=== PATIENT | female | born 1940 | race Caucasian/White ===

== ENCOUNTER 2020-04-14 09:29 | Outpatient (CLI) | payer MEDICARE, SELFPAY ==
--- NOTE | 2020-04-14 09:36 | MM_ITS ---
WS: [id number] Bilateral screening digital mammogram, 04/14/2020 Clinical Data: SCREENING Comparison: 11/20/2017, 11/06/2017, 01/05/2016, 05/19/2014, 06/19/2011, 06/06/2011, 07/31/2009, 05/02/2008, . Findings: The breast parenchymal pattern shows heterogeneous density No spiculated masses or clustered calcific ations are seen. There are no secondary signs of carcinoma. The left breast cyst is not present. MM/[place] [id number] Impression: 1. Negative bilateral mammogram unchanged. 2. Recommend annual screening mammograms. BIRADS: 1-Negative FOLLOW UP: 1 Year Follow-up The [employer] ticket checker was used.
== END 2020-04-14 09:30 | disposition home or self-care (01) ==
LOC: RADSHAW 09:34
PROVIDERS: PCP Family Medicine; Visit Provider Family Medicine
DX: Z12.31 Encounter for screening mammogram for malignant neoplasm of breast (principal)
CPT/HCPCS: 77067

== ENCOUNTER → 2020-06-15 11:16 | Outpatient (BNVA) | payer MEDICARE, SELFPAY | PROVIDERS: PCP Family Medicine; Referring Provider Family Medicine; Visit Provider Specialist | DX: M17.11 Unilateral primary osteoarthritis, right knee (principal); M25.561 Pain in right knee | CPT/HCPCS: 73560; 73565 ==

== ENCOUNTER → 2020-07-27 15:29 | Outpatient (BNVA) | payer MEDICARE, SELFPAY | PROVIDERS: PCP Family Medicine; Visit Provider Specialist | DX: Z01.812 Encounter for preprocedural laboratory examination (principal) | CPT/HCPCS: 87635 ==

== ENCOUNTER 2020-08-01 09:00 | Observation (INO) | payer MEDICARE, SELFPAY ==
[2020-07-21 09:41] VITALS: BMI 27.2
--- NOTE | 2020-07-21 10:26 | ANES.PREANE2 ---
Pre-Anesthetic Assessment Pre-Anesthetic Assessment: Height/Weight: Height 1.57 m Weight 67.585 kg Preop Diagnosis: DJD right knee Proposed Procedure: Operation Date: 08/01/20 07:00 Proposed Procedures p Right Total Knee Arthroplasty 95578 m17.10(Right) - Jenn Moreno MD Familial anesthetic complications: None Social: Social History: No alcohol and No tobacco Exam: Pre-Anes Outpt Exam: alert, oriented x 3, clear to auscultation bilaterally and regular rate & rhythm Airway: Cervical ROM: WNL MP: 3 Dentition: Partials and Full CV/HEM: CV/HEM: HTN Neuropsych: Neuropsych: CVA Comments: hx brain tumor w/ tremors now on diazepam, vertigo Sometimes she will have episodes where she can't move her legs, but she was told they are panic attacks Anesthetic Plan: ASA status: 3 Anesthesia: Eval. for regional block, General and Regional (specify below) Other: adductor canal bloc Spinal vs general --> no apparent mass effect, so spinal may not be contraindicated Risk of > 500 ml blood loss (7ml/kg in children): No PFSH Anesthesia PFSH: Family History Mother Enlarged heart Father Diabetes Social History Smoking and tobacco status: former smoker Alcohol intake: never Data Anesthesia Cardiac Studies: No Data to Display
[2020-07-21 10:40] LABS: Add Urine Microscopic? NO
[2020-07-21 10:45] LABS: Basophils # 0.1 10^3/uL (0.0-0.1); Basophils % 1.1 %; Eosinophils # 0.2 10^3/uL (0.0-0.8); Eosinophils % 2.2 %; Hematocrit 44.6 % (37.0-47.0); Hemoglobin 14.2 g/dL (11.5-15.3); Lymphocytes % 34.9 %; Mean Corpuscular HGB Conc 31.8 g/dL (30.0-36.0); Mean Corpuscular Hemoglobin 27.8 pg (28.0-34.0); Mean Corpuscular Volume 87.5 fL (81-99); Mean Platelet Volume 11.4 fL (7.4-10.4); Monocytes # 0.7 10^3/uL (0.2-0.9); Neutrophils # 4.53 10^3/uL (1.8-7.7); Neutrophils % 53.7 %; Nucleated Red Blood Cells % 0 %; Platelet Count 262 10^3/cmm (130-400); Red Cell Distribution Width 12.7 % (12.1-15.1); White Blood Count 8.5 10^3/uL (4.0-10.0)
[2020-07-21 10:52] LABS: Bilirubin Urine Neg (Negative); Blood Urine Neg (Negative); Glucose Urine UA Norm (Normal); Ketones Urine Negative (Negative); Leukocyte Esterase Urine Negative (Negative); Nitrate Urine Negative (Negative); Protein Urine Neg (Negative); Urine Appearance Clear (CLEAR); Urine Color Yellow (Yellow); Urobilinogen Urine Norm (Negative); pH Urine 7 (5-7)
[2020-07-21 11:02] LABS: Alanine Aminotransferase 13 U/L (0-33); Albumin Level 4.1 g/dL (3.5-5.2); Alkaline Phosphatase 80 IU/L (35-105); Aspartate Amino Transferase 16 U/L (0-32); Blood Urea Nitrogen 17 mg/dL (8-23); Calcium 9.6 mg/dL (8.5-10.5); Carbon Dioxide 27 mmol/L (22-29); Chloride 100 mmol/L (98-107); Creatinine Clr Calc Pharmacy 48.8669; Globulin 3.8 g/dL (1.3-4.6); Glucose 96 mg/dL (65-115); Osmolality Calculated 285 mOsm/kg (285-295); Sodium 137 mmol/L (136-145); Total Bilirubin 0.3 mg/dL (0.15-1.2); Total Protein 7.9 g/dL (6.6-8.7)
[2020-07-21 11:03] LABS: Anion Gap 14.6 (5-19); Potassium 4.6 mmol/L (3.5-5.1)
[2020-08-01] VITALS (18 sets, daily range): BP systolic 114–180; BP diastolic 66–104; PULSE 63–80; RESP 13–20; TEMP 36.2–37.2; O2SAT 90–98
[2020-08-01] MEDS: sodium chloride 0.9% 1,000 ML 30 ML IV (06:20)
[2020-08-01] MEDS: CELEcoxib 200 mg Capsule 400 MG PO (06:25)
--- NOTE | 2020-08-01 06:44 | P.ANESUD_ITS ---
Pre-Anesthetic Update Pre-Anesthetic Assessment: Date of Surgery/Procedure: 08/01/20 Preop [place] gnosis: DJD right knee Proposed Procedure: Operation Date: 08/01/20 07:00 Proposed Procedures p Right Total Knee Arthroplasty 04652 m17.10(Right) - Jenn Moreno MD Any changes to Pre-Anesthetic Assessment?: No Last Intake: Intake Last Liquid Date 07/31/20 Last Liquid Time 18:15 Last Solid Date 07/31/20 Last Solid Time 18:15 Vitals: Temperature 98.5 F 08/01/20 06:38 Temperature Source Temporal Artery S can 08/01/20 06:38 Pulse Rate 68 08/01/20 06:38 Pulse Rhythm 08/01/20 05:55 Pulse Strength 3+ Normal 08/01/20 05:55 Respiratory Rate 18 08/01/20 06:38 Blood Pressure 156/104 08/01/20 06:38 Blood Pressure Maria E n 121 08/01/20 06:38 Pulse Oximetry 97 08/01/20 06:38 Oxygen Delivery Me thod 08/01/20 06:38 Exam: Pre-Anes Outpt Exam: alert, oriented x 3, clear to auscultation bilaterally and regular rate & rhythm Cardiac Studies: No Data to Display
--- NOTE | 2020-08-01 06:44 | ANES.PROC ---
Anesthesia Procedures Procedure/Date: 08/01/20 Nerve Block ^: Nerve Block 1: Main Anesthesia: general anesthesia Time Out Performed: Yes Consent: requested by attending/covering physician, from patient, from other, risks and benefits reviewed and patient agrees to proceed Nerve block location: adductor canal (R) Anesthesia monitors applied: pulse oximetry, EKG, BP cuff and oxygen Anesthetic Used: ropivicaine 0.5% and with decadron (4 mg) Amount of anesthesia used (mL): 30 Ultrasound used to: recognize landmarks and visualize and ID femerol nerve Nerve Stimulator Used?: No Interscalene/Femoral BLK: 4 stimuplex 21 g needle used for position and inplane approach, visualize local anesthetic spread and no vascular puncture identified Injection: neg aspiration of heme Patient Tolerated Procedure: well and no complications Complications: none
--- NOTE | 2020-08-01 06:53 | W.PM.OPSUD ---
Surgery/Procedure H&P Update DATE OF PROCEDURE: August 01, 2020 DATE H&P PERFORMED: 07/24/20 H&P UPDATE INFORMATION: I have reviewed H&P completed within last 30 days, I have examined patient prior to procedure, No changes to prior documentation and H&P is in [facility] on date indicated PREOP DIAGNOSIS: DJD right knee PLANNED PROCEDURE: Operation Date: 08/01/20 07:00 Proposed Procedures p Right Total Knee Arthroplasty 67542 m17.10(Right) - Jenn Moreno MD Related Problem List Diagnoses (1) Primary osteoarthritis of right knee:
[2020-08-01] MEDS: ceFAZolin 1,000 mg SDV 2000 MG IRRIGATION (07:49)
[2020-08-01] MEDS: midazolam 1 mg/mL INJ 2 mL 2 MG IVP (07:50)
[2020-08-01] MEDS: vancomycin 1,000 MG SDV 1000 MG XX (07:50)
--- NOTE | 2020-08-01 09:25 | XRR_ITS ---
PROCEDURE INFORMATION: Exam: XR Right Knee Exam date and time: 08/01/2020 9:26 AM Age: 80 years old Clinical indication: Device placement; Joint replacement hardware; Prior surgery; Additional info: Status post total knee arthroplasty TECHNIQUE: Imaging protocol: XR Right knee. Views: 1 or 2 views. COMPARISON: CR XR knees AP WB w RT lmt ORTH 06/15/2020 11:22 AM FINDINGS: Bones/joints: Anatomic alignment of right knee arthroplasty. Postoperative subcutaneous emphysema and intra-articular air. Soft tissues: Skin janina. Calcification involving the distal quadriceps tendon. XR/XR knee RT 1-2V 33695 IMPRESSION: Anatomic alignment of right knee arthroplasty.
--- NOTE | 2020-08-01 09:28 | P.OP_ITS ---
Operative Report Date of procedure: August 01, 2020 Pre-op Diagnosis: Degenerative osteoarthritis right knee Post-op diagnosis: same Procedure Done: Right total knee arthroplasty Implants: The [place] total knee system with a size 3 triathlon beaded posterior stabilized femur right, a triathlon titanium tibial component size 3 beaded, a triathlon X3 posterior stabilized tibial bearing insert size 3 X 13 mm and a beaded triathlon titanium asymmetric patella size 29 x 9 mm Specimens removed/disposition: None, bone disposed of Pathology: none sent Surgeon: Jenn Moreno Pad Tufter: [employer] [facility] OR technicians Anesthesia: General (Intubated, ASA 3, with preoperative regional block) Estimated blood loss (mL): 25 Tourniquet time (min): 78 Tourniquet time: At 250 mmHg IV fluids (mL): 800 Urine output (mL): 500 Complications: None Findings: Severe degenerative osteoarthritis with varus deformity and medial tibial bone loss Condition: stable Disposition: PACU (Then to floor for postoperative pain management and rehabilitation as well as medical monitoring) Brief History: This 80-year-old man presented with complaints of severe right knee pain. She was unable to perform activities of daily living comfortably. She was unresponsive to conservative measures and wished to proceed with right total knee arthroplasty. Risks and complications were discussed with her and her family. Consents were signed preoperatively and questions were answered. The patient wished to proceed understanding the above. Procedure: The patient was brought to the operating theater, and after undergoing adequate general anesthesia, intubated, with preoperative regional block, ASA 3, the right lower extremity was prepped with Dura-Prep and draped in usual fashion following placement of a tourniquet high on the leg. The leg was then draped free. Following prepping and draping, the leg was exsanguinated, and the tourniquet was elevated to 250 mm Hg for a total tourniquet time of 78 minutes. Prior to elevation of the tourniquet, but following exposure of the site of surgery, a surgical pause was performed. At the time of the surgical pause, we confirmed the site and side of surgery. Additionally, we confirmed the appropriate and timely administration of preoperative antibiotics, Ancef 2 g. and Transexemic acid 1 g. The availability of equipment was confirmed, and the patient's identity was verbalized as well. Following the surgical pause, an incision was made centering over the patella continuing proximally and distally as necessary to allow access to the knee joint. Dissection continued through skin and soft tissues using a scalpel. Hemostasis was obtained using electrocautery. The skin incision was followed by a median parapatellar arthrotomy. The leg was extended and the patella was everted. Following this, the leg was returned to flexed position. The distal femur was exposed and a drill hole was made in this for placement of the distal femoral jig. The distal femoral jig was set at 5? of valgus. The distal femoral cutting block was then placed in appropriate position, and an carmela wing was used to confirm an appropriate amount of distal femur would be resected. The distal femoral resection was accomplished with 8 mm of bone being resected distally. After the distal femoral resection had been accomplished, the femur was measured and it measured a size 3. Medial lateral dimension also measured a size 3. A size 3 femoral cutting block was placed in position, and we were then able to accomplish the anterior, posterior and chamfer cuts. This jig was then removed and the notch guide was placed in position. With the notch guide in appropriate position, the notch was excised including resection of the anterior and posterior cruciate ligaments. This notch was to allow for the posterior stabilized femoral component. At this point, the femur was prepared and attention was directed to the proximal tibia. The posterior knee retractor was placed along with medial and lateral retractors. Further resection of the menisci was accomplished as we had better visualization. A complete meniscectomy was performed both medially and laterally with care being taken to protect the popliteus. Retractors were then placed so that the proximal tibia was well visualized. A drill hole was then made in the tibia for placement of the intramedullary guide. This guide was placed so that approximately 2 mm of bone would be resected from the deficient medial tibial plateau. The intramedullary guide was utilized supplemented with an extramedullary guide to assure appropriate alignment for the proximal tibial resection. The proximal tibial jig was then evaluated, pinned in position, and the proximal tibial resection was accomplished without difficulty. The jig was removed, and the proximal tibia was measured. It measured a size 3. We then attempted a trial reduction with a size 3 by 13 mm insert. The femoral component was placed in position for the trial reduction, and the knee was placed through range of motion. With this, there was excellent stability with excellent varus-valgus alignment with appropriate patellar tracking. Extension was noted to be full as well. This was felt to be the appropriate size insert. There was full extension and flexion without lift off and the rotation of the tibia was marked. Alignment was checked from the hip to the ankle, and this was noted to be appropriate as well. Attention was then directed to the patella. The patella was measured with a caliper. We resected sufficient patella to leave approximately 14 mm of patella remaining. Measurements of the patella then indicated that a size asymmetric 29 mm x 9 mm was the appropriate patellar size. We then placed the jig to drill for the 3 pegs of the press-fit patella, and these drill holes were made without incident. A trial patella was then placed, and the knee was placed through range of motion. The patella was noted to track nicely without evidence of subluxation. The femur was prepared for a press-fit femur by drilling 2 holes for the femoral pegs. All trial components were subsequently removed. The tibial tray was then pinned into position, and we broached the tibia for the stem of the tibial component. Subsequently, 4 drill holes were made for placement of the press-fit tibia. This was accomplished without difficulty. Care was taken to assure appropriate rotation of the tibia as well as appropriate position on the proximal tibia. The tibial tray was completely seated on the proximal tibia. Following broaching, the tibial guide was removed, and all surfaces were copiously irrigated. The surfaces were then dried and a bone plug was placed into the distal femur. Exparel was also injected at this point. The Tritanium tibia was impacted into position. The beaded femur was then impacted into position in a cementless fashion. The tibial insert was placed. The patella was pressed into position with a patellar clamp. The knee was irrigated with 20 mL of Betadine and 500 mL of normal saline, and this was allowed to remain in the knee for 3-4 minutes. The knee was then copiously irrigated and suctioned dry. Attention was then directed to closure. Closure was accomplished with 0 Vicryl in the fascial tissues. Following this, a 2-0 Monocryl was used in the subcutaneous tissues, and the skin was closed with skin janina. A sterile dressing was then placed consisting of Exofin, telfa, 4x4's, ABD, sterile soft roll, and an Cuate wrap. The patient was returned the Recovery Room in a satisfactory condition. X-rays were obtained there. The patient will be discharged to the floor for postoperative rehabilitation and pain management. Associated Problem List Diagnoses (1) Primary osteoarthritis of right knee:
--- NOTE | 2020-08-01 09:29 | SUR.PHASEI ---
PT AWAKE ALERT ON 3LNC NOW, X RAYS DONE, RT KNEE DRESSING THIGH TO TOES D/I FIRST ICE IN PLACE DISTAL FOOT WITH PULSE NOTED FOOT WARM PINK BILAT FOOT PUMPS ON , SZYMANSKI TO DD STATLOCK TO LT THIGH WITH YELLOW URINE NOTED TUBING AND BAG, MONITOR SR NO ECTOPY, VSS .
--- NOTE | 2020-08-01 09:59 | SUR.PHASEI ---
0940 PT TO FLOOR PER BED PT AWAKE ALERT , TALKATIVE WITH STAFF, HANDOFF AT BEDSIDE WITH ENDER RASMUSSEN. RT KNEE DRESSING D/I , PT SATS GOOD ON RA.
[2020-08-01] MEDS: chlorhexidine gluconate 0.12% Btl 473 mL 30 ML MUCOUS MEM ×3 (14:12→20:04)
--- NOTE | 2020-08-01 14:35 | ANE.PACU2 ---
Inpatient post-anesthesia follow up: Airway intact: Yes Vital signs: Temperature 97.5 F Pulse Rate 80 Respiratory Rate 17 Blood Pressure 162/79 Pulse Oximetry 98 Oxygen Delivery Me thod Nasal Cannula Oxygen Flow Rate 1 Fraction of Inspir ed Oxygen Hydration adequate: Yes Nausea and vomiting: No Pain level: 3 Mental status: Baseline
[2020-08-01] MEDS: calcium carbonate 500 mg Chew Tablet 1000 MG PO (17:51)
[2020-08-01] MEDS: mupirocin oint 22 gm 1 APPLIC NASAL (17:51)
[2020-08-01] MEDS: iron polysaccharide complex 150 mg Capsule PO (17:51)
[2020-08-01] MEDS: sennosides-docusate Tablet 2 TAB PO (17:51)
[2020-08-01] MEDS: CELEcoxib 200 mg Capsule PO (17:51)
[2020-08-01] MEDS: trazodone 50 mg Tablet PO (20:05)
[2020-08-02 02:33] LABS: Basophils % 0.2 %; Eosinophils % 0.1 %; Hematocrit 32.2 % (37.0-47.0); Hemoglobin 10.4 g/dL (11.5-15.3); Lymphocytes # 2.1 10^3/uL (0.8-4.8); Lymphocytes % 17.1 %; Mean Corpuscular HGB Conc 32.3 g/dL (30.0-36.0); Mean Corpuscular Hemoglobin 28.3 pg (28.0-34.0); Mean Corpuscular Volume 87.5 fL (81-99); Mean Platelet Volume 11.3 fL (7.4-10.4); Monocytes # 1.2 10^3/uL (0.2-0.9); Monocytes % 9.9 %; Neutrophils # 8.74 10^3/uL (1.8-7.7); Neutrophils % 72.4 %; Nucleated Red Blood Cells % 0 %; Platelet Count 197 10^3/cmm (130-400); Red Blood Count 3.68 10^6/uL (4.1-5.3); White Blood Count 12.1 10^3/uL (4.0-10.0)
[2020-08-02 02:56] LABS: Anion Gap 13.8 (5-19); Blood Urea Nitrogen 24 mg/dL (8-23); Calcium 8.9 mg/dL (8.5-10.5); Carbon Dioxide 24 mmol/L (22-29); Chloride 102 mmol/L (98-107); Glucose 118 mg/dL (65-115); Osmolality Calculated 287 mOsm/kg (285-295); Potassium 3.8 mmol/L (3.5-5.1); Sodium 136 mmol/L (136-145)
[2020-08-02 04:00] VITALS: BP 133/69; PULSE 71; RESP 18; TEMP 36.7; O2SAT 93
[2020-08-02] MEDS: CELEcoxib 200 mg Capsule PO (06:01)
--- NOTE | 2020-08-02 06:34 | NUR.SHIFT ---
Patient mainly slept through the night. This nurse with the assistance of the TROLLEY WIRE INSTALLER was able to transition from bed to chair. Patient tolerated only moderately, patients LLE was weak. Patient had only mild amounts of pain.
[2020-08-02 08:00] VITALS: BP 129/67; PULSE 100; RESP 16; O2SAT 95
--- NOTE | 2020-08-02 09:34 | PC.CHAP ---
Pastoral Care Encounter/Spiritual Assessment Type of Contact [] Declined financial retirement plan specialist visit [] Patient/Family/Request visit [] Outpatient visit [] Follow-up visit [] Physician referral [] Code/Alert [x] Routine visit [] Staff referral [] Actively dying [] Patient sleeping [] Family support [] [] Out of room [] Palliative care [] [] Receiving care in room [] Pre-surgical visit [] Trauma [] Long length of stay [] ICU visit [] Other: Relational/Emotional Strength [x] Patient feels connected with others/family/visitors/staff [] Distress [] Loneliness/isolation [] Abandonment Spirituality of Patient [x] Person of Kimberly [] Attends Denominational of their Kimberly [] Believes in Prayer [] Reads Bible or Muslim materials [] There are Spiritual issues to be addressed Burrer Operator Interventions [x] Prayer [x] Active listening [] Non-anxious presence [] Spiritual/emotional support [] Crisis/trauma care [] Spiritual counseling [] Bereavement support [] Provided bereavement packet [] Provided Bible/devotional materials [] Provided toy/stuffed animal, coloring book to patient or family member [] Provided Communion [] Anointing/[place] [] Salvation [x] Completed spiritual assessment [] Other: Impact on Illness or Injury [] Angry [] Fearful [] Anxious [] Often cries [] Exhaustion [] Unable to work [] Unable to attend uatsdin [] Unable to walk/stand [] Unable to read [] Unable to drive [] Unable to eat/drink [] Unable to sleep [] Unable to be with family [] Patient intubated [] Other: Summary patient feeling much better but still has some pain Time spent with patient 10 min
[2020-08-02] MEDS: calcium carbonate 500 mg Chew Tablet 1000 MG PO (10:40)
[2020-08-02] MEDS: sennosides-docusate Tablet 2 TAB PO (10:45)
[2020-08-02] MEDS: aspirin 325 mg EC Tablet PO (10:46)
[2020-08-02] MEDS: cholecalciferol (vitamin D3) 1,000 unit Tablet 1000 UNIT PO (10:48)
[2020-08-02] MEDS: multivitamin therapeutic Tablet 1 TAB PO (10:49)
[2020-08-02] MEDS: iron polysaccharide complex 150 mg Capsule PO (10:50)
[2020-08-02] MEDS: amlodipine 5 mg Tablet 2.5 MG PO (10:59)
[2020-08-02] MEDS: polyethylene glycol 3350 Pkt 17 gm PO (11:25)
[2020-08-02 11:31] VITALS: BP 148/63; PULSE 64; RESP 24; TEMP 36.4; O2SAT 95
[2020-08-02] MEDS: chlorhexidine gluconate 0.12% Btl 473 mL 30 ML MUCOUS MEM (12:11)
[2020-08-02 12:58] VITALS: PULSE 64; RESP 16; O2SAT 93
[2020-08-02 12:59] VITALS: PULSE 68
[2020-08-02] MEDS: TRAMadol 50 mg Tablet PO (13:46)
--- NOTE | 2020-08-02 13:47 | P.DS_ITS ---
Discharge Providers Date of Admission: 08/01/20 09:00 Date of Discharge: August 02, 2020 Attending Provider at Admission: Jenn Moreno MD Attending Provider at Discharge: Jenn Moreno MD Primary Care Provider: Volodymyr Taylor MD Diagnoses at Discharge Discharge Diagnosis (1) Primary osteoarthritis of right knee: Status: Resolved (2) Status post total right knee replacement: Status: Acute Reason for Visit Reason for Visit: Right Total Knee Arthroplasty 08124 Hospital Course Hospital Course This 80-year-old woman was admitted for same-day surgery under observation status. The patient underwent the following procedure: Right total knee arthroplasty with the following implants: The [employer] (acquired by [employer] in 2014) total knee system with a size 3 triathlon beaded posterior stabilized femur right, a triathlon titanium tibial component size 3 beaded, a triathlon X3 posterior stabilized tibial bearing insert size 3 X 13 mm and a beaded triathlon titanium asymmetric patella size 29 x 9 mm. Patient was admitted to the floor postoperatively under observation status for rehabilitation, medical observation, and pain management. She did well. In fact, the patient did not require pain medication while she was in her first postoperative day. She worked well with physical therapy and was felt to be safe to be discharged home. On the first postoperative day, dressings were removed. The wound was evaluated. There was no drainage. There was no evidence of DVT or infection. The patient was doing well and was neurologically intact. She was seen with her family, and she will be discharged home to follow-up with me in the office. Decision is made to call the patient tramadol for postoperative pain, but currently, she has not been requiring this. Physical Exam Const: COMMON NORMALS: no acute distress, average body habitus, patient oriented x3 and alert GENERAL APPEARANCE: cooperative and comfortable ORIENTATION/CONSCIOUSNESS: Yes awake HENMT: COMMON NORMALS: normocephalic and atraumatic HEAD & SCALP: normocephalic and atraumatic Eye: GENERAL EYE: appearance normal, both eyes and all related structures Chest: COMMONS NORMALS: normal inspection of the chest Resp: COMMON NORMALS: normal respiratory effort EFFORT & INSPECTION: Yes able to speak in complete sentences and Yes symmetric chest movement Extremity: RIGHT LOWER EXTREMITY: Yes knee joint (Dressing is removed, and the wound is benign.) Right knee: Yes inspection (No evidence of infection or DVT.), Yes palpation (Minimal to no tenderness to palpation.), Yes ROM (Not evaluated.) and Yes neurovascular exam (Intact with no evidence of DVT or neuro deficits) Neuro: COMMON NORMALS: patient oriented x3 SENSORIUM/ORIENTATION: Yes alert Psych: COMMON NORMALS: mental status grossly normal APPEARANCE: Yes grossly normal ATTITUDE: Yes calm and Yes engaged ATTENTION/CONCENTRATION: Yes attention grossly intact Skin: COMMON NORMALS: no rashes or lesions noted GENERAL SKIN EXAM: no rashes or lesions noted Urinary Catheter Management^: F: Cath Placed During This Visit: yes, but has since been removed by the nurse Reason for Continuing Indwelling Catheter: Decision to DC Catheter Urinary Catheter Date of Insertion: 08/01/20 Urinary Catheter Time of Insertion: 07:25 Date Urinary Catheter Removed: 08/02/20 Time Urinary Catheter Discontinued: 06:00 Discharge Data Data Completed and Pending: Completed Studies During Hospitalization Category Date Time Status XR knee RT 1-2V 7 3560 Urgent Exams 08/01/20 09:25 Completed Pending at discharge Category Date Time Status Complete Blood Co unt w/Auto AM LABS Lab 08/03/20 04:00 Ordered Complete Blood Co unt w/Auto AM LABS Lab 08/04/20 04:00 Ordered Labs from last 24 hours 08/02/20 08/02/20 01:42 01:42 WBC 12.1 H RBC 3.68 L Hgb 10.4 L Hct 32.2 L MCV 87.5 MCH 28.3 MCHC 32.3 RDW 13.0 Plt Count 197 MPV 11.3 H Neut % (Auto) 72.4 Lymph % (Auto) 17.1 Granite % (Auto) 9.9 Eos % (Auto) 0.1 Baso % (Auto) 0.2 Neut # (Auto) 8.74 H Lymph # (Auto) 2.1 Granite # (Auto) 1.2 H Eos # (Auto) 0.0 Baso # (Auto) 0.0 Nucleated RBC % (a uto) 0 Nucleated RBCs # 0.0 Sodium 136 Potassium 3.8 Chloride 102 Carbon Dioxide 24 Anion Gap 13.8 BUN 24 H Creatinine 1.0 H GFR Calculation Not Reportable Glucose 118 H Calculated Osmolal ity 287 Calcium 8.9 Vitals: Last Vital Signs Temp 97.6 F 08/02/20 11:31 Pulse 68 08/02/20 12:59 Resp 16 08/02/20 12:58 BP 148/63 08/02/20 11:31 Pulse Ox 93 08/02/20 12:58 Discharge Plan Discharge Patient Disposition: Home Health Service Condition: Stable Prescriptions: New celecoxib 200 mg Capsule 200 mg PO DAILY Qty: 30 RF: 1 tramadol 50 mg Tablet 50 mg PO Q4H PRN (Reason: Mild To Moderate Pain) Qty: 30 RF: 0 acetaminophen 500 mg Tablet 1,000 mg PO Q8H Qty: 0 RF: 0 aspirin 325 mg Tablet,Delayed Release (Dr/Ec) 325 mg PO DAILY Qty: 0 RF: 0 Continued trazodone 50 mg Tablet 50 mg PO DAILY RF: 0 amlodipine 2.5 mg Tablet 2.5 mg PO DAILY RF: 0 calcium carbonate-vitamin D3 600 mg(1,500mg) -200 unit Tablet 1 tab PO DAILY RF: 0 diazepam 2 mg Tablet 2 mg PO TID PRN (Reason: Anxiety) RF: 0 polyethylene glycol 3350 [Miralax] 17 gram/dose Powder 17 g PO DAILY RF: 0 fmeymhrvtqfk-vfnbjrcb-tciidh Tablet 1 tab PO DAILY RF: 0 Held aspirin 81 mg Tablet,Delayed Release (Dr/Ec) 81 mg PO DAILY RF: 0 Hold Instructions: Resume on 09/01/20. Continue full-strength aspirin for 30 days, then you may decrease to 81mg ibuprofen 600 mg Tablet 600 mg PO TID RF: 0 Hold Instructions: Resume on 09/01/20. You may resume after Celebrex completion Discharge Orders: Discharge Order (Routine); Ordered 08/01/20 Ordered By: Jenn Moreno Other Ambulatory Orders: DME: Walker (Order) Location: None Selected Ordered By: Jenn Moreno Referrals: Jenn Moreno MD [Physician] - 08/21/20 10:45 am Discharge Diet: Advance as tolerated and Usual diet Discharge Activity: Increase activity as tolerated, Use walker/crutches as instructed and As per PT/OT instructions Patient Instructions: Tramadol (By mouth), Celecoxib (By mouth), Total Knee Replacement (DC) Activity Restrictions/Additional Instructions: Ice and elevation to right lower extremity. Ambulation, gait training, and s trengthening as per physical therapy. Keep wound covered until janina are discontinued. Discharge Attestations Time Spent in Discharge Care*: greater than 30 min Specific Discharge Activities: educating patient, discussing with pillowcase turner/social workers/dc planners, documenting/other paperwork and evaluating patient/reviewing data Quality Metrics Clinical Quality Measures During this hospital stay, did patient experience: None Coding Level of Care Code Acute Humanities Professor for [employer] Fwd Diagnoses Primary osteoarthritis of right knee M17.11 Status post total right knee replacement Z96.651
[2020-08-02] MEDS: acetaminophen 500 mg Tablet 1000 MG PO (14:46)
[2020-08-02 15:18] VITALS: PULSE 68
== END 2020-08-02 15:18 | disposition home health service (06) ==
LOC: MEDSURG 09:01
PROVIDERS: Admitting Provider Specialist; PCP Family Medicine; Visit Provider Specialist
PROC: (CPT 27447; principal; 2020-08-01 07:00)
DX: M17.11 Unilateral primary osteoarthritis, right knee (principal); I10 Essential (primary) hypertension; Z86.73 Personal history of transient ischemic attack (TIA), and cerebral infarction without residual deficits; Z87.891 Personal history of nicotine dependence
CPT/HCPCS: 27447; 12345; 36415; 51702; 64447; 73560; 76942; 80048; 80053; 81003; 85025; 96365; 96374; 97110; 97116; 97162; 97165; 97530; 97535; C1776; C9290; G0378; J0131; J0690; J1100; J2250; J2405; J2704; J2795; J3010; J3370; J3490; J7030

== ENCOUNTER → 2020-08-21 11:01 | Outpatient (BNVA) | payer MEDICARE, SELFPAY | PROVIDERS: PCP Family Medicine; Visit Provider Specialist | DX: Z47.1 Aftercare following joint replacement surgery (principal); Z96.651 Presence of right artificial knee joint | CPT/HCPCS: 73560; 73565 ==

== ENCOUNTER → 2020-09-28 11:10 | Outpatient (BNVA) | payer MEDICARE, SELFPAY | PROVIDERS: PCP Family Medicine; Visit Provider Specialist | DX: Z96.651 Presence of right artificial knee joint (principal); Z47.1 Aftercare following joint replacement surgery | CPT/HCPCS: 73560; 73565 ==

== ENCOUNTER → 2021-01-29 10:39 | Outpatient (BNVA) | payer MEDICARE, SELFPAY | PROVIDERS: PCP Family Medicine; Visit Provider Specialist | DX: Z47.1 Aftercare following joint replacement surgery (principal); Z96.651 Presence of right artificial knee joint | CPT/HCPCS: 73560; 73565 ==

== ENCOUNTER 2022-04-08 10:54 | Outpatient (CLI) | payer MEDICARE, SELFPAY ==
--- NOTE | 2022-04-08 11:03 | MM_ITS ---
WS: [id number] SCREENING DIGITAL BREAST TOMOSYNTHESIS MAMMOGRAM WITH CAD HISTORY: SCREENING COMPARISON: 04/14/2020, 11/20/2017 and 11/06/2017 Bilateral CC and MLO with tomosynthesis and synthetic mammography submitted. Computer aided detection analyzed. Breast composition: The breasts are heterogeneously dense, which may obscure small masses. Partially obscured ovoid mass central to the nipple close to 12:00 measures 10 x 12 mm. On the most recent mamm ogram there was no abnormality at this location. Large cysts have been present on the prior exams. Be nign vascular calcifications in each breast. MM/[place] [id number] IMPRESSION: BI-RADS: 0-Incomplete: Need additional imaging evaluation FOLLOW UP: Need Additional Imaging Recommendation: LEFT breast ultrasound, limited. Ultrasound directed central to the LEFT nipple and near 12:00.
== END 2022-04-08 10:55 | disposition home or self-care (01) ==
LOC: RAD 10:55
PROVIDERS: PCP Family Medicine; Visit Provider Nurse Practitioner Family
DX: Z12.31 Encounter for screening mammogram for malignant neoplasm of breast (principal)
CPT/HCPCS: 77063; 77067

== ENCOUNTER 2022-05-31 07:44 | Outpatient (CLI) | payer MEDICARE, SELFPAY ==
--- NOTE | 2022-05-31 07:55 | US_ITS ---
WS: [id number] ULTRASOUND LEFT BREAST HISTORY: ABNORMAL MAMMO COMPARISON: 11/20/2017 and mammogram 04/08/2022 TECHNIQUE: 2-D and Doppler. There are several cysts lump 12:00 axis. Cyst corresponding to the mammographic abnormality at 12:00 just posterior to the areolar measures 8 x 9 x 7 mm. No solid mass or distortion. US/US breast LT limited* [id number] IMPRESSION: BI-RADS: 2-Benign FOLLOW-UP: 1 Year Follow-up
== END 2022-05-31 07:45 | disposition home or self-care (01) ==
PROVIDERS: PCP Family Medicine; Visit Provider Family Medicine
DX: R92.8 Other abnormal and inconclusive findings on diagnostic imaging of breast (principal)
CPT/HCPCS: 76642

== ENCOUNTER → 2024-08-26 13:53 | Outpatient (BNVA) | payer MEDICARE, SELFPAY | PROVIDERS: PCP Family Medicine; Visit Provider Orthopaedic Surgery | DX: M54.9 Dorsalgia, unspecified (principal) | CPT/HCPCS: 72100; 99203 ==

== ENCOUNTER 2024-08-31 13:44 | Outpatient (CLI) | payer MEDICARE, SELFPAY ==
--- NOTE | 2024-08-31 14:30 | MR_ITS ---
WS: [id number] MRI LUMBAR SPINE NONCONTRAST TECHNIQUE: Sagittal T1, T2 and STIR imaging. Axial T1 and T2 imaging. CLINICAL INFORMATION: Back pain COMPARISON: None. FINDINGS: Acute compression fracture T12 with loss of approximately 40% vertebral body height. Minimal retropulsion of the posterior superior cortex with slight effacement of the ventral thecal sac. Mild compression with trace edema L1 superior endplate. L1-L2: Mild disc bulging. Slight effacement of the ventral thecal sac. Mild facet arthropathy. L2-L3: Slight retrolisthesis. Mild disc bulging. Narrowing of the subarticular recess bilaterally. Mild RIGHT greater than LEFT foraminal narrowing. L3-L4: Mild disc bulging with slight retrolisthesis. Moderate central canal stenosis. Narrowing of the subarticular recess bilaterally. Moderate facet arthropathy. Moderate RIGHT and mild LEFT foraminal narrowing. L4-L5: Moderate central canal stenosis with mild disc bulging. Impingement of the subarticular recess bilaterally. Mild RIGHT greater than LEFT foraminal narrowing. L5-S1: Disc bulging with impingement on the traversing LEFT S1 nerve root in the subarticular recess. Mild to moderate facet arthropathy. Mild to moderate LEFT foraminal narrowing. Visualized pelvic bony structures: Normal. Paravertebral soft tissues: Normal. Bilateral renal cysts. Adrenal glands are normal. Slightly aneurysmal distal abdominal aorta measuring 2.5 x 2.5 cm MR/MR lumbar spine wo con* [id number] IMPRESSION: 1. Acute compression fracture T12 loss of approximately 40% vertebral body hei ght. Minimal retropulsion of the posterior superior cortex with slight effaceme nt of the ventral thecal sac. 2. Mild compression with trace edema L1 superior endplate has a more chronic a ppearance.. 3. Moderate central canal stenosis L3-4 and L4-5 with impingement of the subar ticular recess. 4. LEFT paracentral protrusion L5-S1 impinges the traversing LEFT S1 nerve radha t. Mild to moderate LEFT L5-S1 foraminal narrowing.
== END 2024-08-31 13:45 | disposition home or self-care (01) ==
LOC: RAD 13:47
PROVIDERS: PCP Family Medicine; Visit Provider Orthopaedic Surgery
DX: M48.061 Spinal stenosis, lumbar region without neurogenic claudication (principal); M48.54XA Collapsed vertebra, not elsewhere classified, thoracic region, initial encounter for fracture; M48.56XD Collapsed vertebra, not elsewhere classified, lumbar region, subsequent encounter for fracture with routine healing; R93.7 Abnormal findings on diagnostic imaging of other parts of musculoskeletal system; M51.27 Other intervertebral disc displacement, lumbosacral region; M48.07 Spinal stenosis, lumbosacral region; M51.369 Other intervertebral disc degeneration, lumbar region without mention of lumbar back pain or lower extremity pain; M47.896 Other spondylosis, lumbar region; M51.379 Other intervertebral disc degeneration, lumbosacral region without mention of lumbar back pain or lower extremity pain; M47.897 Other spondylosis, lumbosacral region; N28.1 Cyst of kidney, acquired
CPT/HCPCS: 72148

== ENCOUNTER → 2024-09-09 15:32 | Outpatient (BNVA) | payer MEDICARE, SELFPAY | PROVIDERS: PCP Family Medicine; Visit Provider Orthopaedic Surgery | DX: Z09 Encounter for follow-up examination after completed treatment for conditions other than malignant neoplasm (principal) | CPT/HCPCS: 36415; 80053; 81001; 85025; 99214 ==

== ENCOUNTER → 2024-09-17 10:21 | Day surgery (SDC) | payer MEDICARE, SELFPAY ==
[2024-09-17] VITALS (8 sets, daily range): BP systolic 117–164; BP diastolic 47–100; PULSE 71–78; RESP 15–20; TEMP 36.2; O2SAT 92–98; BMI 25.6
[2024-09-17] MEDS: sodium chloride 0.9% 1,000 ML 30 ML IV (11:36)
--- NOTE | 2024-09-17 12:10 | ANES.PREANE2 ---
Pre-Anesthetic Assessment Height/Weight: Height 5 ft 2 in Weight 140 lb O2 Del Method Room Air 09/17/24 11:04 Preop Diagnosis: T12 compression fracture Operation Date: 09/17/24 13:00 Proposed Procedures p Kyphoplasty(Not Applicable) - Rishi Santiago, DO Was Beta Christel taken within 24 hours: N/A Was Clonidine taken within 24 hours: N/A Last intake: Intake Last Liquid Date 09/16/24 Last Liquid Time 23:55 Last Solid Date 09/16/24 Last Solid Time 17:30 Social No alcohol and No tobacco Exam alert, oriented x 3, clear to auscultation bilaterally and regular rate & rhythm Airway Submandibular: within normal limits Cervical ROM: within normal limits Mallampati: Class II Dentition: false and full Comments: Comments: Upper dentures, only a few bottom teeth left. Denies any loose Anesthetic Plan ASA status: 3 Anesthesia: General Other: No prior issues with anesthesia NPO since yesterday Prior CVA, mild lower extremity weakness. Ambulates with walker Hypertension on amlodipine Recent labs reviewed and acceptable for procedure Patient states she is able to perform ADLs Plan for GETA Medications/Allergies Home Medications ?Medication ?Instructions ?Recorded ?Confirmed ?Last Taken ?Type amlodipine 2.5 mg tablet 5 mg PO DAILY 07/21/20 09/17/24 09/17/24 History aspirin 81 mg tablet,delayed 81 mg PO DAILY 07/21/20 09/17/24 09/13/24 History release Held on 08/02/20. Instructions: Resume on 09/01/20. Continue full-strength aspirin for 30 days, then you may decrease to 81mg diazepam 2 mg tablet 2 mg PO TID PRN Anxiety 07/21/20 09/17/24 07/31/20 History ibuprofen 600 mg tablet 600 mg PO TID 07/21/20 09/17/24 07/30/20 History Held on 08/02/20. Instructions: Resume on 09/01/20. You may resume after Celebrex completion tlhwkglligzb-sgwglynp-tterov tablet 1 tab PO DAILY 07/21/20 09/17/24 07/31/20 History polyethylene glycol 3350 17 17 g PO DAILY 07/21/20 09/17/24 07/31/20 History gram/dose oral powder (Miralax) trazodone 50 mg tablet 50 mg PO DAILY 07/21/20 09/17/24 07/31/20 History acetaminophen 500 mg tablet 1,000 mg (2 x 500 mg) PO Q8H #0 08/02/20 09/17/24 Unknown Rx tabs aspirin 325 mg tablet,delayed 325 mg PO DAILY #0 tabs 08/02/20 09/17/24 Unknown Rx release tramadol 50 mg tablet 50 mg PO Q4H PRN Mild To Moderate 08/02/20 09/17/24 09/16/24 Rx Pain #30 tabs Allergies Allergy/AdvReac Type Severity Reaction Status Date / Time codeine Allergy ADR-Headach Verified 09/16/24 16:36 e Current Medications Generic Name Dose Route Start Last Admin Trade Name Freq PRN Reason Stop Dose Admin Sodium Chloride 1,000 mls @ 30 mls/hr 09/17/24 10:30 09/17/24 11:36 Sodium Chloride 0.9% IV 09/18/24 10:29 30 mls/hr .Q24H NINA Administration PFSH Anesthesia Family History Mother Enlarged heart Father Diabetes Social History Smoking and tobacco/nicotine status: unknown if used tobacco/nicotine Alcohol intake: never Data Anesthesia Cardiac Studies: No Data to Display
--- NOTE | 2024-09-17 12:13 | W.PM.OPSUD ---
Surgery/Procedure H&P Update DATE OF PROCEDURE: September 17, 2024 DATE H&P PERFORMED: 09/09/24 H&P UPDATE INFORMATION: I have reviewed H&P completed within last 30 days, I have examined patient prior to procedure and No changes to prior documentation PREOP DIAGNOSIS: T12 compression fracture PLANNED PROCEDURE: Operation Date: 09/17/24 13:00 Proposed Procedures p Kyphoplasty(Not Applicable) - Rishi Santiago DO
--- NOTE | 2024-09-17 12:14 | SC_ITS ---
WS: [id number] Exam: C-arm FL for Kyphoplasty Date/Time of Exam: 09/17/2024 12:14 PM Reason For Exam: Surgery AP and lateral intraoperative C-arm images at the thoracolumbar junction are obtained for visualization purposes during kyphoplasty.
[2024-09-17] MEDS: ceFAZolin 2,000 mg SDV 2000 MG IVP (12:30)
[2024-09-17] MEDS: lidocaine-epi 1% 20 mL INJ INJECTION (12:57)
[2024-09-17] MEDS: TRAMadol 50 mg Tablet PO (14:23)
--- NOTE | 2024-09-17 16:00 | ANE.PACU2 ---
Inpatient post-anesthesia follow up: Airway intact: Yes Vital signs: Temperature 97.1 F Pulse Rate 74 Respiratory Rate 16 Blood Pressure 146/72 Pulse Oximetry 92 Oxygen Delivery Me thod Room Air Oxygen Flow Rate Fraction of Inspir ed Oxygen Hydration adequate: Yes Nausea and vomiting: No Pain level: 1 Mental status: Baseline
--- NOTE | 2024-09-21 07:49 | PM.OP ---
Operative Report Date of procedure: September 17, 2024 Pre-op diagnosis: T12 osteoporotic wedge traumatic compression fracture Post-op diagnosis: same Procedure done: T12 kyphoplasty Surgeon: Rishi Santiago DO Estimated blood loss (mL): 5 Procedure: T12 kyphoplasty The patient brought the op suite after an Gonasi was placed in the prone position. All areas impingement well-padded. Patient's prepped and draped normal sterile fashion. Skin incision made outside the left pedicle at T12. Awl was inserted. Followed by the drill. Followed by the balloon. The balloon was inflated and then deflated. Next the cement was injected. Biplanar fluoroscopy ensured that the cement was in good position. There were no leaks. Once the cement was completely injected then AP lateral fluoroscopy ensured that cement was in good position. Wounds irrigated closed with nylon suture and patient was transferred to the PACU in stable condition.
== END | disposition home or self-care (01) ==
PROVIDERS: PCP Family Medicine; Visit Provider Orthopaedic Surgery
PROC: (CPT 22513; principal; 2024-09-17 12:40)
DX: M80.08XA Age-related osteoporosis with current pathological fracture, vertebra(e), initial encounter for fracture (principal); I10 Essential (primary) hypertension; I69.359 Hemiplegia and hemiparesis following cerebral infarction affecting unspecified side; Z79.899 Other long term (current) drug therapy; Z79.82 Long term (current) use of aspirin; Z88.5 Allergy status to narcotic agent; Z97.2 Presence of dental prosthetic device (complete) (partial)
CPT/HCPCS: 22513; 76000; J0131; J0360; J0690; J1100; J2405; J2704; J3010; J3490; J7030; J9999

== ENCOUNTER → 2024-10-05 15:32 | Outpatient (BNVA) | payer MEDICARE, SELFPAY | PROVIDERS: PCP Family Medicine; Visit Provider Orthopaedic Surgery | DX: Z09 Encounter for follow-up examination after completed treatment for conditions other than malignant neoplasm (principal) | CPT/HCPCS: 99024 ==